=== PATIENT | female | born 1995 | race Caucasian/White ===

== ENCOUNTER 2019-06-24 21:09 | Emergency (ER) | payer SELFPAY ==
[~2019-06-24] VITALS: Ht 172.7 cm; Wt 77.0 kg
[2019-06-24] MEDS ORDERED: IBUPROFEN 600MG TABLET PO STA (22:35)
[2019-06-24 23:31] VITALS: BP 110/69
== END 2019-06-25 01:06 | disposition home or self-care (01) ==
LOC: ER 21:09
DX: M79.662 Pain in left lower leg (principal)
CPT/HCPCS: 81025; 93971; 99284